=== PATIENT | female | born 1985 | race Hispanic/Latino ===

== ENCOUNTER 2017-08-18 19:56 | Emergency (ER) | payer SELFPAY ==
[~2017-08-18 19:56] MED LIST: ISOVUE-370 76%-LOCM 1 ML ONE
[2017-08-18 20:19] LABS: #Basophils 0.1 thou/uL (0.0-0.2); #Eosinphils 0.3 thou/uL (0.0-0.7); #Lymphocytes 2.4 thou/uL (1.20-3.40); #Monocytes 0.6 thou/uL (0.11-0.59); #Neutrophils 3.1 thou/uL (1.40-6.50); %Basophils 1.7 % (0.0-1.0); %Eosinophils 4.8 % (0.0-10.0); %Lymphocytes 37.3 % (21.0-51.0); %Monocytes 8.5 % (0.0-10.0); %Neutrophils 47.7 % (42.0-75.0); Mean Corpuscular HGB CONC 31.8 g/dL (32.0-36.0); Mean Corpuscular Hemoglobin 25.8 pg (27.0-31.0); Mean Corpuscular Volume 81.1 fl (81.0-99.0); Mean Platelet Volume 7.5 fL (7.4-10.4); Platelet Count 306 thou/uL (130-400); RBC Distribution Width 14.6 % (11.5-14.5); Red Blood Cell (RBC) Count 4.25 mill/uL (4.20-5.40); White Blood Cell (WBC) Count 6.5 thou/uL (4.8-10.8)
[2017-08-18 20:38] LABS: ALT (SGPT) 10 U/L (8-55); AST (SGOT) 14 U/L (5-34); Albumin 4.3 g/dL (3.5-5.0); Alkaline Phosphatase 49 U/L (40-150); Anion Gap 13 mmol/L (10-20); BUN (Urea Nitrogen) 9 mg/dL (7.0-18.7); Bilirubin, Total 0.5 mg/dL (0.2-1.2); CK (CPK) 118 U/L (29-168); Calc. Creatinine Clearance 0 mL/min (70-130); Calcium 9.5 mg/dL (7.8-10.44); Carbon Dioxide 22 mmol/L (22-29); Chloride 107 mmol/L (98-107); Estimated GFR-MDRD 90; Globulin 3.4 g/dL (2.4-3.5); Glucose 87 mg/dL (70-105); Potassium 3.6 mmol/L (3.5-5.1); Protein, Total 7.7 g/dL (6.0-8.3); Sodium 138 mmol/L (136-145)
--- NOTE | 2017-08-18 20:40 | RAD ---
CHEST ONE VIEW: 08/18/17 HISTORY: 32-year-old female with history of chest pain. COMPARISON: 07/26/15 FINDINGS: Heart size is normal. The lungs are clear. IMPRESSION: No acute intrathoracic disease. Stable from prior study. POS: [facility]
[2017-08-18 20:43] LABS: Troponin I Less than 0.010 ng/mL (< 0.028)
[2017-08-18 22:11] LABS: BHCG - Serum Negative (NEGATIVE); Pregs Control Background? CLEAR/WHITE (CLR/WHITE); Pregs Control Bar Appear? YES (CONTROL BAR)
--- NOTE | 2017-08-18 22:39 | ULT ---
LEFT UPPER EXTREMITY VENOUS DUPLEX STUDY: 08/18/17 Veins of the left upper extremity evaluated with ultrasound and doppler. Color doppler with spectral analysis and compression studies performed. INDICATIONS: Left upper extremity pain and edema. Left internal jugular vein shows normal flow and compression. The left subclavian vein shows normal f low with doppler studies. The left axillary vein, basilic vein, cephalic vein, brachial vein, radial vein, and ulnar vein were all imaged and appear unremarkable. No evidence of venous thrombosis. IMPRESSION: Negative venous duplex study of left upper extremity. POS: [facility]
--- NOTE | 2017-08-18 23:43 | CT ---
CT ANGIOGRAM OF CHEST WITH 3D RENDERIN08/18/17 HISTORY: 32-year-old female with history of dyspnea and elevated D-dimer. Patient feels like heart is racing. Initial injection timing bolus was inadequate for pulmonary artery visualization, so the patient was reinjected and rescanned. There is no CT evidence for acute pulmonary embolism. No evidence of aortic aneurysm or dissection. No pleural effusion or pericardial effusion. There are gallstones within the gallbladder without overt gallbladder wall thickening or pericholecystic fat stranding. IMPRESSION: No significant CT evidence for acute pulmonary embolism. Multiple cholelithiasis. POS: [facility]
--- NOTE | 2017-08-23 00:26 | EKG ---
Test Reason : Blood Pressure : / mmHG Vent. Rate : 087 BPM Atrial Rate : 087 BPM P-R Int : 144 ms QRS Dur : 078 ms QT Int : 344 ms P-R-T Axes : 013 018 010 degrees QTc Int : 413 ms Normal sinus rhythm Normal ECG Confirmed by CAROLYN MCKEE ([id number]), commercial production editor SHONA MELCHOR ([id number] on 08/23/2017 12:25:25 AM Referred By: Confirmed By:CAROLYN MCKEE
== END 2017-08-19 00:20 | disposition home or self-care (01) ==
LOC: ERS 19:56
DX: R07.89 Other chest pain (principal); R79.1 Abnormal coagulation profile
CPT/HCPCS: 71045; 71275; 80053; 82553; 84484; 84703; 85025; 85379; 93005